=== PATIENT | female | born 1995 | race African-American/Black ===

== ENCOUNTER 2016-10-26 11:35 | Emergency (ER) | payer MEDICAID, OTHER ==
[~2016-10-26] VITALS: Ht 165.1 cm; Wt 76.0 kg
[2016-10-26 11:36] VITALS: BP 137/78; PULSE 90; RESP 16; TEMP 98.5; O2SAT 100
--- NOTE | 2016-10-26 12:15 | PD ---
HPI Chief Complaint: Complaint Time Seen by Provider: 12:12 Travel History International Travel<30 days: No Contact w/Intl Traveler<30days: No Traveled to known affect area: No History of Present Illness HPI 21-year-old female presents to the emergency department for evaluation of urinary frequency urgency and dysuria. Patient states that for the past week she's had urinary frequency. States that she's also developed urinary urgency and malodorous urine over the past several days. States that today she has had mild suprapubic pain and tingling sensation with urination. States that she has sensation of incomplete voiding. Denies any fever, chills, nausea, vomiting , vaginal discharge, hematuria. Denies , last menstrual period 1 month ago, states she has irregular menses secondary to the Implanon contraceptive device. No other complaints. PFSH Past Medical History Diminished Hearing: No Gastrointestinal Disorders: Yes (UTI HX) Tetanus Vaccination: > 5 Years Influenza Vaccination: Yes ?: Unknown LMP: 09/28/16 : 1 Para: 1 Miscarriage: 0 : 0 Past Surgical History Surgical History: No Previous Surgery Social History Alcohol Use: Yes (OCASSIONALLY) Tobacco Use: No Substance Use: No Allergies-Medications (Allergen,Severity, Reaction): Coded Allergies: No Known Allergies (Unverified , 10/26/16) Reported Meds & Prescriptions Reported Meds & Active Scripts Active No Active Prescriptions or Reported Medications Review of Systems Except as stated in HPI: all other systems reviewed are Neg Physical Exam Narrative GENERAL: Well-nourished and well-developed pleasant female patient in no acute distress who is nontoxic appearing. SKIN: Warm and dry. HEAD: Normocephalic and atraumatic. EYES: No injection, drainage, or hyphema noted. PERRLA. EOMI. ENT: No nasal drainage noted. Oropharynx is clear. NECK: Supple and the trachea is midline. CARDIOVASCULAR: Regular rate and rhythm. RESPIRATORY: Breath sounds are equal bilaterally with no accessory muscle use, wheezing, rhonchi, or crackles. GASTROINTESTINAL: Mild suprapubic tenderness to palpation. No rebound tenderness or guarding. Abdomen is soft and nondistended. MUSCULOSKELETAL: No obvious deformities, swelling, cyanosis, or ecchymosis is present throughout the upper and lower extremities. Patient has full range of motion without any signs of neurovascular compromise. NEUROLOGICAL: Awake, alert, and oriented. Normal speech and gait. Cranial nerves are grossly intact. Data Data Last Documented VS Vital Signs Date Time Temp Pulse Resp B/P Pulse Ox O2 Delivery O2 Flow Rate FiO2 10/26/16 11:47 77 17 10/26/16 11:36 98.5 137/78 100 Room Air Orders Urinalysis - C+S If Indicated (10/26/16 11:58) Ed Urine Pregnancytest Poc (10/26/16 11:58) Urine Culture (10/26/16 12:10) Labs Laboratory Tests Test 10/26/16 12:10 Urine Color YELLOW Urine Turbidity HAZY Urine pH 6.0 Urine Specific [place] 1.022 Urine Protein 30 mg/dL Urine Glucose (UA) NEG mg/dL Urine Ketones NEG mg/dL Urine Occult Blood MOD Urine Nitrite NEG Urine Bilirubin NEG Urine Urobilinogen LESS THAN 2.0 MG/DL Urine Leukocyte Esterase LARGE Urine RBC 49 /hpf Urine WBC 118 /hpf Urine Squamous Epithelial 10 /hpf Cells Urine Transitional Epithelial <1 /hpf Cells Urine Bacteria OCC /hpf Urine Mucus FEW /lpf Microscopic Urinalysis Comment CULTURE INDICATED MDM Medical Decision Making Medical Screen Exam Complete: Yes Emergency Medical Condition: Yes Differential Diagnosis Urinary tract infection versus urethritis versus cystitis Narrative Course 21-year-old female presents to the emergency department for evaluation of urinary frequency, urinary urgency and dysuria for one week. Patient is afebrile, vital signs are stable. Physical examination essentially unremarkable. ED urine test is negative. ED urine test negative. Urinalysis shows 30 protein, moderate occult blood, large and decide esterase, 49 red blood cells, 180 white blood cells, occasional bacteria and few mucus. Patient has urinary tract infection will be discharged with Keflex. Advised follow-up with her PCP. Patient verbalizes understanding and agreement with treatment plan. Diagnosis Primary Impression: Urinary tract infection Qualified Code: N39.0 - Urinary tract infection with hematuria, site unspecified Referrals: Primary Care Physician Patient Instructions: General Instructions, Urinary Tract Infection in Women ( ED) Additional Instructions: Drink plenty of fluids. Take medications as prescribed with food and a full glass of water. Follow-up with your Primary Care Physician. Return to the ED for any acute worsening of symptoms. Med/Other Pt SpecificInfo: Prescription(s) given Scripts Cephalexin (Keflex)500 Mg [id number] Mg PO Q12H 7 Days Ref 0 Prov:Jorge Lewis MD 10/26/16 Disposition: 01 DISCHARGE HOME Condition: Stable Kaley Townsend Oct 26, 2016 12:15
[2016-10-26 12:36] LABS: BACTERIA, URINE OCC /hpf; BLOOD, URINE MOD (NEG); GLUCOSE,URINE NEG (NEG); KETONE, URINE NEG (NEG); MUCUS URINE FEW /lpf (OCC); NITRITE,URINE NEG (NEG); SQUAMOUS EPITHELIAL CELL URINE 10 /hpf (0-5); TRANSITIONAL EPI CELLS, URINE <1 /hpf; URINE COLOR YELLOW (YELLW/STRAW)
[2016-10-26 12:37] LABS: COMMENT (UR) CULTURE INDICATED; CULTURE IF INDICATED CULTURE INDICATED
[2016-10-26] MEDS ORDERED: CEPH-460 PO (12:44)
== END 2016-10-26 13:00 | disposition home or self-care (01) ==
LOC: NEPC 11:35
DX: N39.0 Urinary tract infection, site not specified (principal); R31.9 Hematuria, unspecified; B96.20 Unspecified Escherichia coli [E. coli] as the cause of diseases classified elsewhere; Z87.19 Personal history of other diseases of the digestive system
CPT/HCPCS: 81001; 84703; 87077; 87086; 87186; 99283

== ENCOUNTER 2017-08-03 22:26 | Emergency (ER) | payer OTHER ==
[~2017-08-03] VITALS: Ht 157.5 cm; Wt 75.0 kg
[~2017-08-03 22:26] MED LIST: CEPH-460 PO
[2017-08-03 22:28] VITALS: BP 130/80; PULSE 90; RESP 16; TEMP 98.5; O2SAT 99
[2017-08-03] MEDS ORDERED: SODIUM CHLOR 0.9% 1000 ML INJ 1,000 ML IV ONE (22:42)
--- NOTE | 2017-08-03 23:03 | PD ---
HPI Chief Complaint: Related Problem Time Seen by Provider: 22:38 Travel History International Travel<30 days: No Contact w/Intl Traveler<30days: No Traveled to known affect area: No History of Present Illness HPI The patient is a 21 year old female who presents to the [facility] emergency department with a history of vaginal spotting that began on Monday night last night. She has had some lower abdominal cramping associated with this that is increased throughout the day today. She reports that the vaginal bleeding is also gotten heavier. Her deputy county counsel is Dr. Ventura. The patient reports that she has had a quantitative beta hCG done which did drop on repeat evaluation, however a week ago she did have an ultrasound done at which time heart activity was identified. The patient's last menstrual cycle was reportedly May 27. She is a with one vaginal delivery without complications previously. On review of systems otherwise, the patient denies having any known recent fevers, cough, congestion, neck pain, chest pain, shortness of breath, vomiting, diarrhea, urinary symptoms, or neurologic symptoms. PFS Past Medical History Narrative Medical The patient's past medical history is reportedly none. Medical History: Denies Significant Hx Diminished Hearing: No Gastrointestinal Disorders: Yes (UTI HX) Influenza Vaccination: Yes ?: : 2 Para: 1 Miscarriage: 0 : 0 Past Surgical History Narrative Surgical The patient's past surgical history is reportedly none. Surgical History: No Previous Surgery Social History Alcohol Use: Yes (OCASSIONALLY) Tobacco Use: No Substance Use: No Allergies-Medications (Allergen,Severity, Reaction): Coded Allergies: No Known Allergies (Unverified Adverse Reaction, Unknown, 08/03/17) Reported Meds & Prescriptions Reported Meds & Active Scripts Active Keflex (Cephalexin) 500 Mg Cap 500 Mg PO Q12H 7 Days Review of Systems Except as stated in HPI: all other systems reviewed are Neg General / Constitutional: No: Fever Eyes: No: Visual changes HENT: No: Headaches Cardiovascular: No: Chest Pain or Discomfort Respiratory: No: Shortness of Breath Gastrointestinal: Positive: Abdominal Pain, No: Nausea, Vomiting, Diarrhea, Changes in Bowel Habits, Loss of Appetite Genitourinary: Positive: Pelvic Pain, Vaginal Bleeding, No: Dysuria Musculoskeletal: No: Pain Skin: No Rash Neurologic: No: Weakness Psychiatric: No: Depression Endocrine: No: Polydipsia Hematologic/Lymphatic: No: Easy Bruising Physical Exam Narrative General: The patient is a well-developed well-nourished female in no acute distress. Head and Neck exam: Head is normocephalic atraumatic. Cardiovascular: Regular rate and rhythm without murmurs, gallops, or rubs. Lungs: Clear to auscultation bilaterally. No wheezes, rhonchi, or rales. Abdomen: Soft, with tenderness on palpation along the suprapubic area, no other tenderness on palpation of the other quadrants of the abdomen. No guarding, rebound, or rigidity. Normal bowel sounds are audible. No tenderness on palpation of McBurney's point. Negative Taylor's sign. Extremities: No clubbing, cyanosis, or edema. Back: No costovertebral angle tenderness to palpation. Neurologic Exam: Grossly nonfocal. Skin Exam: No rash noted. Intact skin that is warm and dry. Gynecologic exam: The patient was placed in the dorsal lithotomy position. Her external genitalia were examined. She had no evidence of rash or lesions. The speculum was placed into her vagina and the cervix was identified. She had a small amount of blood pooling in the posterior vaginal vault. No cervical friability. On Bimanual exam: Her cervical os is closed. She has no cervical motion tenderness. No adnexal tenderness or prominence noted on palpation. No uterine tenderness, however slight enlargement is noted on palpation. Data Data Last Documented VS Vital Signs Date Time Temp Pulse Resp B/P (MAP) Pulse Ox O2 Delivery O2 Flow Rate FiO2 08/04/17 01:44 08/03/17 22:28 98.5 90 16 99 Room Air Orders Orders Beta Hcg (Quant/Titer) (08/03/17 22:42) Complete Blood Count With Diff (08/03/17 22:42) Comprehensive Metabolic Panel (08/03/17 22:42) Gc And Chlamydia Pcr (08/03/17 22:42) Complete Rh (08/03/17 22:42) Wet Prep Profile (08/03/17 22:42) Urinalysis - C+S If Indicated (08/03/17 22:42) Iv Access Insert/Monitor (08/03/17 22:42) Ecg Monitoring (08/03/17 22:42) Sodium Chlor 0.9% 1000 Ml Inj (Ns 1000 M (08/03/17 22:42) Ed Poc Ultrasound (08/03/17 22:42) Urine Culture (08/03/17 22:50) Us Pelvis (Ques Pr/Ect)W Trans (08/04/17 ) Labs Laboratory Tests Test 08/03/17 22:50 08/03/17 23:15 White Blood Count 7.3 TH/MM3 Red Blood Count 4.33 MIL/MM3 Hemoglobin 12.5 GM/DL Hematocrit 37.9 % Mean Corpuscular Volume 87.6 FL Mean Corpuscular Hemoglobin 28.8 PG Mean Corpuscular Hemoglobin Concent 32.9 % Red Cell Distribution Width 13.4 % Platelet Count 415 TH/MM3 Mean Platelet Volume 6.8 FL Neutrophils (%) (Auto) 62.0 % Lymphocytes (%) (Auto) 27.2 % Monocytes (%) (Auto) 8.2 % Eosinophils (%) (Auto) 1.9 % Basophils (%) (Auto) 0.7 % Neutrophils # (Auto) 4.5 TH/MM3 Lymphocytes # (Auto) 2.0 TH/MM3 Monocytes # (Auto) 0.6 TH/MM3 Eosinophils # (Auto) 0.1 TH/MM3 Basophils # (Auto) 0.1 TH/MM3 CBC Comment DIFF FINAL Differential Comment Urine Color YELLOW Urine Turbidity HAZY Urine pH 5.5 Urine Specific [place] 1.028 Urine Protein TRACE mg/dL Urine Glucose (UA) NEG mg/dL Urine Ketones NEG mg/dL Urine Occult Blood LARGE Urine Nitrite NEG Urine Bilirubin NEG Urine Urobilinogen LESS THAN 2.0 MG/DL Urine Leukocyte Esterase NEG Urine RBC 3 /hpf Urine WBC 1 /hpf Urine Squamous Epithelial Cells 6 /hpf Urine Bacteria MOD /hpf Urine Mucus FEW /lpf Microscopic Urinalysis Comment CULTURE INDICATED Blood Urea Nitrogen 7 MG/DL Creatinine 0.81 MG/DL Random Glucose 99 MG/DL Total Protein 7.7 GM/DL Albumin 3.7 GM/DL Calcium Level 8.8 MG/DL Alkaline Phosphatase 105 U/L Aspartate Amino Transf (AST/SGOT) 16 U/L Alanine Aminotransferase (ALT/SGPT) 19 U/L Total Bilirubin 0.5 MG/DL Sodium Level 138 MEQ/L Potassium Level 3.5 MEQ/L Chloride Level 105 MEQ/L Carbon Dioxide Level 25.0 MEQ/L Anion Gap 8 MEQ/L Estimat Glomerular Filtration Rate 106 ML/MIN Human Chorionic Gonadotropin, Quant 2364 MIU/ML Clue Cells (Wet Prep) NONE SEEN Vaginal Trichomonas (Wet Prep) NONE SEEN Vaginal Yeast (Wet Prep) NONE SEEN Chlamydia trachomatis DNA (PCR) NOT DETECTED Neisseria gonorrhoeae DNA (PCR) NOT DETECTED MDM Medical Decision Making Medical Screen Exam Complete: Yes Emergency Medical Condition: Yes Medical Record Reviewed: Yes Interpretation(s) Last Impressions Pelvis Ultrasound 08/04/17 0000 Signed Impressions: Service Date/Time: Friday, August 04, 2017 00:09 - CONCLUSION: Intrauterine gestational sac is identified. pole and yolk sac are seen. heart activity is not identified. Findings suspicious for failed first trimester . Johan Boyce MD Differential Diagnosis Threatened miscarriage, versus ectopic , versus subchorionic hemorrhage , versus cystitis Narrative Course During the course of the patients emergency department visit, the patients history, examination, and differential diagnosis were reviewed with the patient. The patient was placed on a awake overnight monitor with oximetry and frequent blood pressure monitoring. The patient had IV access obtained and blood work sent for analysis. An ultrasound to rule out ectopic was ordered. The patient was initially provided normal saline 1 L IV fluid bolus. The patients laboratory studies were reviewed and remarkable for a CBC that shows a normal white count with a monocytosis at 8.2. CMP is within normal limits, quantitative beta hCG is 2364. Urinalysis shows large occult blood, moderate bacteria, 3 RBCs, 1 WBC, squamous epithelial cells 6 consistent with contamination. Wet prep is negative. Radiology studies were reviewed and remarkable for an ultrasound that shows a gestational sac identified within the uterus, 6 weeks 0 days by size, you sac is seen, pole is identified, however heart activity is not identified. Findings are suspicious for failed first trimester . The patient is instructed on bed rest and pelvic rest. The patient is instructed to follow-up with her campus monitor in 2 days for reexamination and repeat quantitative beta hCG. The patient is resting comfortably and feels better, is alert and in no distress. The patients results and examination findings were discussed with the patient. The repeat examination is unremarkable and benign. The history, exam, diagnostic testing, and current condition do not suggest any significant pathology to warrant further testing, continued ED treatment, admission, or surgical evaluation at this point. The vital signs have been stable. The patient does not have uncontrollable pain, intractable vomiting, or other significant symptoms. The patient's condition is stable and appropriate for discharge. The patient will pursue further outpatient evaluation with a primary care physician or other designated or consulting physician as indicated in the discharge instructions. The patient expressed understanding and was agreeable with this plan. Diagnosis Primary Impression: Threatened miscarriage in early Referrals: News Production Supervisor 2 days Departure Forms: Tests/Procedures, Work Release Enter return to work date: Aug 10, 2017 Additional Instructions: Follow-up for reexamination by her campus monitor in 2 days. Avoid anything in your vagina. The patient is instructed to avoid using tampons. The patient is instructed on pelvic rest and avoiding sex. The patient will be given a work excuse for the next week. The patient is instructed on bed rest. Disposition: 01 DISCHARGE HOME Condition: Stable Seema Wong MD Aug 03, 2017 23:03
[2017-08-03 23:08] LABS: AUTOMATED NEUTROPHIL # 4.5 TH/MM3 (1.8-7.7); BASOPHIL # 0.1 TH/MM3 (0-0.2); BASOPHIL % 0.7 % (0.0-2.0); EOSINOPHIL # 0.1 TH/MM3 (0-0.4); EOSINOPHIL % 1.9 % (0.0-4.0); HEMATOCRIT 37.9 % (35.0-46.0); HEMOGLOBIN 12.5 GM/DL (11.6-15.3); LYMPH % 27.2 % (9.0-44.0); MEAN CELL VOLUME 87.6 FL (80.0-100.0); MEAN CORPUSCULAR HEMOGLOBIN 28.8 PG (27.0-34.0); MEAN CORPUSCULAR HGB CONC 32.9 % (32.0-36.0); MEAN PLATELET VOLUME 6.8 FL (7.0-11.0); MONO % 8.2 % (0.0-8.0); MONOCYTE # 0.6 TH/MM3 (0-0.9); PLATELET COUNT 415 TH/MM3 (150-450); RED BLOOD COUNT 4.33 MIL/MM3 (4.00-5.30); RED CELL DISTRIBUTION WIDTH 13.4 % (11.6-17.2); WHITE BLOOD COUNT 7.3 TH/MM3 (4.0-11.0)
[2017-08-03 23:42] LABS: BACTERIA, URINE MOD /hpf; BILIRUBIN, URINE NEG (NEG); BLOOD, URINE LARGE (NEG); GLUCOSE,URINE NEG (NEG); KETONE, URINE NEG (NEG); MUCUS URINE FEW /lpf (OCC); NITRITE,URINE NEG (NEG); PH, URINE 5.5 (5.0-8.5); SQUAMOUS EPITHELIAL CELL URINE 6 /hpf (0-5); URINE COLOR YELLOW (YELLW/STRAW); URINE LEUKOCYTE ESTERASE NEG (NEG)
[2017-08-03 23:48] LABS: ALBUMIN 3.7 GM/DL (3.4-5.0); ALT (GPT) 19 U/L (10-53); AST (GOT) 16 U/L (15-37); BLOOD UREA NITROGEN 7 MG/DL (7-18); CALCIUM 8.8 MG/DL (8.5-10.1); CHLORIDE 105 MEQ/L (98-107); CREATININE 0.81 MG/DL (0.50-1.00); GLOMERULAR FILTRATION RATE 106 ML/MIN (>89); GLUCOSE,RANDOM 99 MG/DL (74-106); SODIUM (NA) 138 MEQ/L (136-145)
[2017-08-04 00:05] LABS: ALKALINE PHOSPHATASE 105 U/L (45-117); TOTAL BILIRUBIN ADULT 0.5 MG/DL (0.2-1.0); TOTAL PROTEIN 7.7 GM/DL (6.4-8.2)
--- NOTE | 2017-08-04 01:16 | RADRPT ---
EXAM DATE/TIME: 08/04/2017 00:09 [facility] COMPARISON: No previous studies available for comparison. INDICATIONS : Pelvic bleeding. LAB(S): Beta-hC MEDICAL HISTORY : . UTI. SURGICAL HISTORY : None. ENCOUNTER: Initial ACUITY: 2 days PAIN SCORE: 0/10 LOCATION: Bilateral pelvis MEASUREMENTS: UTERUS: 11.1 x 6.8 x 5.7 cm ENDOMETRIAL STRIPE: >20 mm RIGHT OVARY: 3.0 x 4.0 x 2.5 cm LEFT OVARY: 2.0 x 1.8 x 1.7 cm FREE FLUID: Yes posterior cul de sac CROWN RUMP LENGTH: 1.0 cm = 7 WKS 1 DAYS FHR: Nonvisualized BPM FINDINGS: UTERUS: Gestational sac is identified within the uterus. Approximate gestational age by mean sac diameter is 6 weeks zero days. Yolk sac is seen. pole is identified. Approximate gestational age by crown-r ump length is 7 weeks one day. RIGHT OVARY: 1.9 x 1.0 x 1.5 cm simple cyst in the right ovary. LEFT OVARY: Ovary contains no mass or significant cystic lesion. MISCELLANEOUS: Trace free fluid in the cul-de-sac. CONCLUSION: Intrauterine gestational sac is identified. pole and yolk sac are seen. heart activity is not identified. Findings suspicious for failed first trimester . Johan Boyce MD on August 04, 2017 at 1:08 Board Certified Radiologist. This report was verified electronically.
== END 2017-08-04 01:45 | disposition home or self-care (01) ==
LOC: NEPE 22:26
DX: O20.0 Threatened abortion (principal); R10.30 Lower abdominal pain, unspecified
CPT/HCPCS: 76700; 76817; 80053; 81001; 84702; 85025; 86901; 87086; 87210; 87491; 87591; 96360; 96361; 99285; J7030

== ENCOUNTER 2017-08-08 15:21 | Observation (INO) | payer OTHER ==
[~2017-08-08] VITALS: Ht 157.5 cm; Wt 88.5 kg
[2017-08-08] MEDS ORDERED: POVIDONE IODINE 5% (ANTISEPSIS KIT) 4 APPLICATIONS EACH NARE PRN (16:00)
[2017-08-08] MEDS ORDERED: LACTATED RINGER'S 1000 ML IV PRN (16:00)
[2017-08-08] MEDS ORDERED: ceFAZolin 2 GM PREMIX 50 ML IV SCH (16:00)
[2017-08-08] MEDS ORDERED: METOPROLOL TARTRATE 25 MG TAB PO PRN (16:00)
[2017-08-08] MEDS ORDERED: SODIUM CHLORID 0.9% 500 ML IV PRN (16:00)
[2017-08-08] MEDS ORDERED: CHLORHEXIDINE GLUCONATE 2 % 1 PACK (2 CLOTHS) TOPICAL PRN (16:00)
[2017-08-08 16:20] LABS: AUTOMATED NEUTROPHIL # 4.6 TH/MM3 (1.8-7.7); BASOPHIL # 0.1 TH/MM3 (0-0.2); BASOPHIL % 0.7 % (0.0-2.0); EOSINOPHIL # 0.1 TH/MM3 (0-0.4); EOSINOPHIL % 1.1 % (0.0-4.0); HEMATOCRIT 37.5 % (35.0-46.0); HEMOGLOBIN 12.6 GM/DL (11.6-15.3); LYMPHOCYTE # 2.5 TH/MM3 (1.0-4.8); MEAN CELL VOLUME 86.3 FL (80.0-100.0); MEAN CORPUSCULAR HEMOGLOBIN 29.1 PG (27.0-34.0); MEAN CORPUSCULAR HGB CONC 33.7 % (32.0-36.0); MEAN PLATELET VOLUME 6.7 FL (7.0-11.0); MONO % 5.1 % (0.0-8.0); MONOCYTE # 0.4 TH/MM3 (0-0.9); NEUT % 60.1 % (16.0-70.0); PLATELET COUNT 415 TH/MM3 (150-450); RED BLOOD COUNT 4.34 MIL/MM3 (4.00-5.30); RED CELL DISTRIBUTION WIDTH 13.7 % (11.6-17.2); WHITE BLOOD COUNT 7.6 TH/MM3 (4.0-11.0)
[2017-08-08] MEDS ORDERED: ACETAMINOPHEN 1000 MG/100 ML 100 ML IV ONE (17:50)
[2017-08-08] MEDS ORDERED: MIDAZOLAM HCL 2 MG/2 ML VIAL ONE (19:22)
[2017-08-08] MEDS ORDERED: MORPHINE SULFATE 2 MG/ML INJ ONE (19:25)
[2017-08-08] MEDS ORDERED: oxyCODONE/ACETAMINOPHEN 10 MG/325 MG TAB PO PRN (19:30)
[2017-08-08] MEDS ORDERED: oxyCODONE/ACETAMINOPHEN 5 MG/325 MG TAB PO PRN (19:30)
[2017-08-08] MEDS ORDERED: ONDANSETRON HCL 4 MG/2 ML VIAL IV PUSH PRN (19:30)
[2017-08-08] MEDS ORDERED: DO NOT ADM ANY ANTICOAGULANT DRUGS PRN (19:30)
[2017-08-08 20:55] VITALS: BP 121/77; PULSE 74; RESP 21; O2SAT 100
--- NOTE | 2017-08-09 09:44 | MP ---
cc: SHAWN JACK DATE OF SURGERY 08/08/2017 PREOPERATIVE DIAGNOSIS Incomplete . POSTOPERATIVE DIAGNOSIS Incomplete . PROCEDURE D&C with suction. SURGEON Shawn Jack. ANESTHESIA General. ESTIMATED BLOOD LOSS Minimal. DRAINS None. SPECIMEN Products of conception. COUNTS Correct x2. DISPOSITION Stable in the PACU. INDICATION FOR PROCEDURE The patient is a 21-year-old 2, para 1 female who presented initially around July 28 complaining of vaginal bleeding. At that time the patient had intrauterine with a cardiac activity at approximately 6 weeks gestation. Approximately one week later the patient had heavier vaginal bleeding and presented to [facility]. At that time no cardiac activity was noted. The patient presented to the office on 08/08/2017 with heavier vaginal bleeding. The cervix was noted to be open. The patient states she had been bleeding like this since 08/03/2017 and desired operative intervention. DETAILS OF PROCEDURE After informed consent was obtained the patient was taken to the operating room, prepped and draped in normal sterile fashion for surgery with her legs in the candy-cane stirrups. A speculum was inserted into the vagina. The anterior lip of the cervix was grasped using a single-tooth tenaculum. A #10 suction catheter is then used and scant products of conception are revealed. Bleeding is noted to be scant. A smaller #8 suction curette is then used as the uterus was noted to be clamping down. The uterus was then gently curetted to ensure no products of conception had been missed. At this point there was scant bleeding. The tenaculum was removed. There was noted to be a small amount of bleeding coming from the tenaculum site. An Allis was placed on the cervix to tamponade this bleeding. After approximately two minutes the Allis was removed, the bleeding had ceased and the procedures was felt to be completed. At this point all instruments were removed from the patient's vagina. She was awakened and extubated and taken to the recovery room in stable condition. MD LISANDRO Hughes/CLARICE /9:16 AM /9:22 AM
== END 2017-08-08 20:58 | disposition home or self-care (01) ==
LOC: HSDC 15:21 → HSDI 19:26
PROVIDERS: ADMIT Obstetrics & Gynecology; ATTEND Obstetrics & Gynecology
DX: O03.4 Incomplete spontaneous abortion without complication (principal)
CPT/HCPCS: 01965; 59812; 85025; 86850; 86900; 86901; 88305; J0131; J2250; J2270; J3010; J7120